=== PATIENT | male | born 1945 | race Two or more races ===

== ENCOUNTER 2016-04-17 20:35 | Emergency (ER) | payer MEDICARE ==
[~2016-04-17 20:35] MED LIST: APRESOLINE-DPS50 MG PO; CATAPRES-DPS0.1 MG PO; COLACE-DPS100 MG PO; DULCOLAX-DPS10 MG PR; DUONEB DPS3 ML IH; FLOMAX DPS0.4 MG PO; HEPARIN5000 UNITS SQ; HYDROCODON-ACE1 EAC4 PO; HYDRODIURIL-DPS25 MG PO; KEFLEX-DPS500 MG PO; MAALOX DPS30 ML PO; MILK OF MAGNESI10 ML PO; MIRALAX PACKET17 GM PO; NITROSTAT0.4 MG SL; NORVASC DPS10 MG PO; PROTONIX40 MG PO; SENOKOT S1 TAB PO; SURFAK DPS240 MG PO; THERA1 EACH PO; TOPROL XL DPS100 MG PO; TYLENOL DPS325 MG PO
--- NOTE | 2016-04-18 13:07 | ER ---
ADMIT: 04/17/2016 RM/LOC: ER [facility] MR#: [id number] [address] [id number] ELMER PEREZ [address] [place] [address] Emergency Room Report SEX: M AGE: 71 : 1945 DATE: 04/17/2016 HISTORY OF PRESENT ILLNESS: The patient is a 71-year-old male, who in March of 2015 was diagnosed with right intracranial hemorrhage, hypertension, and had craniotomy and was discharged to home with hypertension control medications. The patient came to the ER today with chief complaint of acute cephalgia for the last few hours. The patient denies any trauma, visual changes, new numbness or tingling or weakness or problems in the speech or balance. PHYSICAL EXAMINATION: VITAL SIGNS: Patient has systolic blood pressure of 215, but was not tachycardic. O2 saturation was good at room air. HEAD AND NECK: Had normal bilateral 3 mm pupil, reactive to light. Neck was soft and no meningismus. LUNGS: Bilateral clear. HEART: Normal S1, S2. ABDOMEN: Soft. EXTREMITIES: There is no swelling or tenderness in the lower extremities. NEUROLOGIC: There is no new focal neurological deficit. Motor, sensory, cranial nerve and cerebellar test are grossly normal. Blood pressure was controlled with 2 doses of IV labetalol 20 mg and also patient received one dose of morphine IV, which controlled the headache and the blood pressure came to 160 systolic, and after that, the patient took his night dose of metoprolol p.o. CT scan of the brain did not show any acute changes, no active bleeding. I talked to Dr. Mcnair, who is covering Dr. Kidd' patient, and he believes at this moment, there is no need for change in the medication protocol, and the patient should follow up with the primary care doctor, Dr. Kidd on Tuesday. The patient is on lisinopril 40 mg daily, metoprolol 100 mg every 12 hours, and guanfacine 1 mg daily. PLAN: The importance of blood pressure control was discussed with the patient. The patient was rechecked, and was in no pain or distress and blood pressure was controlled. The patient was discharged to home with return precautions. Strict advice on blood pressure check and come to the ER if it is elevated or if he has any new symptoms. The patient was advised to follow up with Dr. Kidd' office Tuesday. The patient acknowledged he understood the plan and agreed with it. Ricarda Pugh MD/ merry JOB #: [id number] CC: Pierre Chambers MD, Attending Physician Luciano Kidd MD, Family Physician
== END 2016-04-17 22:45 | disposition home or self-care (01) ==
LOC: ER 20:35
DX: R51 Headache (principal); I10 Essential (primary) hypertension; Z86.73 Personal history of transient ischemic attack (TIA), and cerebral infarction without residual deficits; Z79.899 Other long term (current) drug therapy